=== PATIENT | female | born 1965 | race Hispanic/Latino ===

== ENCOUNTER 2017-01-29 11:22 | Outpatient (CLI) | payer BC ==
--- NOTE | 2017-01-30 08:43 | Mammography Report ---
BILATERAL DIGITAL SCREENING MAMMOGRAM with CAD: 01/29/17 11:22:00 CLINICAL: Routine screening. COMPARISON:09/06/15 FINDINGS: There are scattered areas of fibroglandular density and multiple bilateral stable circumscribed low-density nodules. No new mass, architectural distortion or suspicious calcifications. IMPRESSION: No mammographic evidence of malignancy. BI-RADS CATEGORY: 2 -- Benign RECOMMENDATION: Routine mammographic screening in one year. COMMENT: Patient follow-up letters are generated by our [email or web address] application.
== END 2017-01-29 11:23 | disposition home or self-care (01) ==
LOC: SPVWC 11:22
PROVIDERS: ATTEND Obstetrics & Gynecology
DX: Z12.31 Encounter for screening mammogram for malignant neoplasm of breast (principal)
CPT/HCPCS: 77067; G0202

== ENCOUNTER 2018-09-28 11:33 | Outpatient (CLI) | payer OTHER ==
--- NOTE | 2018-09-28 14:49 | Mammography Report ---
BILATERAL DIGITAL SCREENING MAMMOGRAM with CAD: 09/28/18 11:33:00 CLINICAL: Routine screening. COMPARISON:01/29/17 FINDINGS: The breasts are mostly fatty.Bilateral multiple low density circumscribed nodules are unchanged compared to previous exams. No new mass, architectural distortion or suspicious calcifications. IMPRESSION: No mammographic evidence of malignancy. BI-RADS CATEGORY: 2 -- Benign RECOMMENDATION: Routine mammographic screening in one year. COMMENT: Patient follow-up letters are generated by our [employer] application.
== END 2018-09-28 11:34 | disposition home or self-care (01) ==
LOC: SPVWC 11:33
PROVIDERS: ATTEND Obstetrics & Gynecology
DX: Z12.31 Encounter for screening mammogram for malignant neoplasm of breast (principal)
CPT/HCPCS: 77067

== ENCOUNTER 2020-02-07 12:48 | Outpatient (CLI) | payer BC ==
--- NOTE | 2020-02-08 08:24 | Mammography Report ---
BILATERAL DIGITAL SCREENING MAMMOGRAM WITH CAD HISTORY: SCREENING MAMMO TECHNIQUE: Routine digital mammographic imaging performed. This examination was interpreted with dusty claros benefit of Computer-aided Detection analysis. COMPARISON: 09/28/2018, 01/29/2017, 09/06/2015. FINDINGS: Breast Density: scattered fibroglandular appearance of the breast tissue. Digital CC and MLO views demonstrate no mammographic evidence of malignancy. A few focal asymmetries and scattered circumscribed oval and round masses appear stable or slightly decreased in size. The a ppearance of which over a long period would support a benign etiology. IMPRESSION: No mammographic evidence of malignancy. If the clinical examination remains stable, recommend bilate ral mammogram in approximately one year. BIRADS 2: Benign Finding(s). FURTHER INFORMATION: According to the [employer], yearly mammograms are recommend ed starting at age 40 and continuing as long as a woman is in good health. Clinical Breast Exams shou ld be part of a periodic health exam-about every 3 years for women in their 20s and 30s and every yea r for women 40 and over. Breast self exam is an option for women starting in their 20s. Any breast ch mandeep noted on a breast self exam should be reported promptly to the patient's healthcare provider. Br east MRI is recommended for women with an approximately 20-25% or greater lifetime risk of breast can cer, including women with a strong family history of breast or ovarian cancer and women who have been treated for Hodgkin's disease. A negative Mammography report should not discourage follow up or biopsy of a clinically significant f inding and/or abnormality. Dense breast tissue may obscure small neoplasms. The patient will be entered into a reminder system with a target due date for the next screening mamm ogram. Signer Name: Jonatan Bhandari MD Signed: 02/08/2020 8:19 AM Workstation Name: [id number]
== END 2020-02-07 12:49 | disposition home or self-care (01) ==
LOC: SPVWC 12:48
PROVIDERS: ATTEND Obstetrics & Gynecology
DX: Z12.31 Encounter for screening mammogram for malignant neoplasm of breast (principal)
CPT/HCPCS: 77067

== ENCOUNTER 2021-02-19 12:54 | Outpatient (CLI) | payer OTHER ==
--- NOTE | 2021-02-20 14:32 | Mammography Report ---
DIGITAL SCREENING MAMMOGRAM WITH CAD, 02/19/2021 CLINICAL INFORMATION / INDICATION: Routine screening mammography. TECHNIQUE: Digital bilateral 2D mammography was obtained in the craniocaudal and mediolateral obliqu e projections. This examination was interpreted with the benefit of Computer-Aided Detection analysis . COMPARISON: 09/28/2018 FINDINGS: Breast Density: There are scattered areas of fibroglandular density. No dominant mass, suspicious calcifications, or architectural distortion in either breast. Stable bilateral nodularity. Overall, no interval change. IMPRESSION: No mammographic evidence of malignancy. Follow up recommendation: Routine yearly BI-RADS Category 2: Benign. A "normal" or negative report should not discourage follow up or biopsy of a clinically significant f inding. A written summary of these findings will be mailed to the patient. The patient will be entered into a mammography reporting system which will generate a reminder letter for the patient's next appointmen t at the appropriate interval. The [employer] recommends yearly mammograms starting at age 40 and continuing as l hanna as a woman is in good health. Breast MRI is recommended for women with an approximate 20-25% or greater lifetime risk of breast cancer, including women with a strong family history of breast or ova lilliam cancer or who have been treated for Hodgkin's disease. Signer Name: Flaca Bojorquez MD Signed: 02/20/2021 2:28 PM Workstation Name: [id number]
== END 2021-02-19 12:55 | disposition home or self-care (01) ==
LOC: SPVWC 12:54
PROVIDERS: ATTEND Obstetrics & Gynecology
DX: Z12.31 Encounter for screening mammogram for malignant neoplasm of breast (principal)
CPT/HCPCS: 77067